=== PATIENT | female | born 1940 | race African-American/Black ===

== ENCOUNTER 2018-10-11 20:22 | Inpatient (IN) | payer OTHER ==
[~2018-10-11] VITALS: Ht 167.6 cm; Wt 62.6 kg
[2018-10-11 22:11] LABS: BASOPHILS % 0.7 % (0.0-2.0); EOSINOPHILS % 0.2 % (0.0-5.0); HEMATOCRIT. 27.1 % (36.0-48.0); HEMOGLOBIN. 8.8 g/dL (12.0-16.0); LYMPHOCYTES % 8.9 % (20.0-50.0); MEAN CORPUSCULAR HEMOGLOBIN 27.5 pg (28.0-32.0); MEAN CORPUSCULAR VOLUME 84.4 fL (81.0-99.0); MEAN PLATELET VOLUME 8.5 fl (7.4-10.4); MONOCYTES % 9.2 % (2.0-8.0); PLATELET 331 x1000/uL (130-400); RED BLOOD CELL COUNT 3.21 mill/uL (4.2-5.4); RED CELL DISTRIBUTION WIDTH 15.4 % (11.6-14.6)
[2018-10-11 22:13] LABS: CHLORIDE 107 mEq/L (98-107)
[2018-10-11] MEDS ORDERED: NITROGLYCERIN 0.4MG TABLET SL SL PRN (22:45)
[2018-10-11] MEDS ORDERED: FUROSEMIDE 40MG/4ML VIAL IV ONE (22:45)
[2018-10-11] MEDS ORDERED: ASPIRIN 81MG TABLET PO ONE (22:45)
[2018-10-12] MEDS ORDERED: POTASSIUM CHLORIDE 20MEQ TABLET SR PO ONE (00:30)
[2018-10-12] MEDS ORDERED: CLONIDINE 0.1MG TABLET PO PRN (07:30)
[2018-10-12] MEDS ORDERED: ONDANSETRON HCL 4MG/2ML INJ IV PRN (07:30)
[2018-10-12] MEDS ORDERED: ACETAMINOPHEN 325MG TABLET PO PRN (07:30)
[2018-10-12 08:00] VITALS: BP 170/64
[2018-10-12] MEDS ORDERED: IPRATROPIUM/ALBUTEROL 0.5-3(2.5)MG/3ML NEB HHN PRN (09:00)
[2018-10-12] MEDS ORDERED: AMLODIPINE 5MG TABLET PO SCH (09:00)
[2018-10-12] MEDS ORDERED: CARV3.1242 MT (10:09)
[2018-10-12] MEDS ORDERED: PIOG15TA6 MT (10:09)
[2018-10-12] MEDS ORDERED: CHOL20004 MT (10:09)
[2018-10-12] MEDS ORDERED: FURO-152 MT (10:09)
[2018-10-12] MEDS: AZITHROMYCIN 500 MG TABLET PO SCH (10:49)
[2018-10-12] MEDS: AMLODIPINE 5MG TABLET PO SCH ×2 (10:50→20:39)
[2018-10-12] MEDS: GUAIFENESIN-DM 200MG-20MG/10ML UDC PO PRN ×2 (10:55→16:07)
[2018-10-12 12:00] VITALS: BP 157/64
[2018-10-12] MEDS ORDERED: DEXTROSE 50% WATER 50ML SYRINGE IV PRN (12:15)
[2018-10-12] MEDS: CEFTRIAXONE 1 G PREMIX 50 ML IV SCH (12:58)
[2018-10-12] MEDS: FUROSEMIDE 20MG TABLET PO SCH (12:58)
[2018-10-12] MEDS: INSULIN LISPRO 100 UNITS/ML SUBCUT SCH ×3 (12:59→21:12)
[2018-10-12] MEDS: BLOOD SUGAR DIAGNOSTIC STRIP TEST SCH ×3 (12:59→21:12)
[2018-10-12 15:53] VITALS: BP 170/64
[2018-10-12 16:00] VITALS: BP 120/63
[2018-10-12 20:00] VITALS: BP 144/69
[2018-10-13] VITALS (7 sets, daily range): BP systolic 115–178; BP diastolic 57–71
[2018-10-13] MEDS: GUAIFENESIN-DM 200MG-20MG/10ML UDC PO PRN ×3 (02:43→14:45)
[2018-10-13] MEDS: INSULIN LISPRO 100 UNITS/ML SUBCUT SCH ×2 (08:31→13:16)
[2018-10-13 08:35] LABS: BASOPHILS % 0.7 % (0.0-2.0); EOSINOPHILS % 0.7 % (0.0-5.0); HEMATOCRIT. 29.4 % (36.0-48.0); HEMOGLOBIN. 9.6 g/dL (12.0-16.0); LYMPHOCYTES % 14.1 % (20.0-50.0); MEAN CORPUSCULAR HEMOGLOBIN 27.6 pg (28.0-32.0); MEAN CORPUSCULAR VOLUME 84.5 fL (81.0-99.0); MEAN PLATELET VOLUME 9.4 fl (7.4-10.4); MONOCYTES % 11.2 % (2.0-8.0); NEUTROPHILS % 73.3 % (40.0-76.0); PLATELET 372 x1000/uL (130-400); RED BLOOD CELL COUNT 3.48 mill/uL (4.2-5.4); RED CELL DISTRIBUTION WIDTH 15.1 % (11.6-14.6)
[2018-10-13] MEDS: CEFTRIAXONE 1 G PREMIX 50 ML IV SCH (10:43)
[2018-10-13] MEDS: FUROSEMIDE 20MG TABLET PO SCH (10:43)
[2018-10-13] MEDS: AZITHROMYCIN 500 MG TABLET PO SCH (10:44)
[2018-10-13] MEDS: AMLODIPINE 5MG TABLET PO SCH (10:44)
[2018-10-13] MEDS ORDERED: DILTIAZEM HCL 90MG TABLET PO SCH (14:00)
[2018-10-13] MEDS ORDERED: AZIT500T5 PO (15:06)
[2018-10-13] MEDS ORDERED: DILT90TA2 PO ×2 (15:06→15:30)
[2018-10-13] MEDS ORDERED: POLYVINYL ALCOHOL OPHTH DROPS 15ML RIGHTEYE SCH (17:00)
== END 2018-10-13 17:34 | disposition home or self-care (01) | DRG 291 ==
LOC: ER 23:33 → 6WST 10-12 00:18 → ENRESERV 10-12 07:04 → EDBEDREQ 10-12 08:40
PROVIDERS: ADMIT Internal Medicine; ATTEND Internal Medicine
DX: I13.0 Hypertensive heart and chronic kidney disease with heart failure and stage 1 through stage 4 chronic kidney disease, or unspecified chronic kidney disease (principal); E43 Unspecified severe protein-calorie malnutrition; J18.1 Lobar pneumonia, unspecified organism; I50.43 Acute on chronic combined systolic (congestive) and diastolic (congestive) heart failure; N18.4 Chronic kidney disease, stage 4 (severe); D64.9 Anemia, unspecified; R74.8 Abnormal levels of other serum enzymes; E11.22 Type 2 diabetes mellitus with diabetic chronic kidney disease; E87.6 Hypokalemia; Z68.22 Body mass index [BMI] 22.0-22.9, adult; Z91.018 Allergy to other foods; Z79.899 Other long term (current) drug therapy
CPT/HCPCS: 36415; 71045; 80048; 82962; 83880; 84484; 93005; 93306; 93970; 96374; 99291; C1893; J0696; J1815; J1940

== ENCOUNTER 2021-07-29 18:38 | Inpatient (IN) | payer MEDICARE, OTHER ==
[~2021-07-29] VITALS: Ht 161.5 cm; Wt 57.6 kg
[~2021-07-29 18:38] MED LIST: AZIT500T8 PO; CARV3.1242 MT; CHOL20004 MT; DILT90TA2 PO; FURO-152 MT; PIOG15TA6 MT
[2021-07-29] MEDS ORDERED: LIDOCAINE HCL 1% 20ML VIAL (Pyxis) INJ INFIL STA (19:25)
[2021-07-29 19:41] LABS: HEMATOCRIT. 36.8 % (36.0-48.0); HEMOGLOBIN. 12.3 g/dL (12.0-16.0); MEAN CORPUSCULAR HEMOGLOBIN 29.3 pg (28.0-32.0); MEAN CORPUSCULAR VOLUME 87.7 fL (81.0-99.0); MEAN PLATELET VOLUME 8.4 fl (7.4-10.4); PLATELET 377 x1000/uL (130-400); RED CELL DISTRIBUTION WIDTH 16.4 % (11.6-14.6)
[2021-07-29 19:48] LABS: PROTHROMBIN TIME 11.2 sec (9.6-11.0)
[2021-07-29 19:49] LABS: CHLORIDE 97 mEq/L (98-107)
[2021-07-29 19:58] LABS: CREATINE KINASE 161 IU/L (26-192)
[2021-07-29 20:00] LABS: PLATELET ESTIMATE NORMAL
[2021-07-29] MEDS ORDERED: PIPERACILLIN/TAZOBACTAM 3.375GM/50ML PREMIX IV ONE (20:30)
[2021-07-29] MEDS ORDERED: VANCOMYCIN 750 MG PREMIX 150 ML IV NR (22:00)
[2021-07-29] MEDS ORDERED: VANCOMYCIN 1 G PREMIX 200 ML IV SCH (22:00)
[2021-07-29] MEDS ORDERED: ACETAMINOPHEN 325MG TABLET PO PRN (22:45)
[2021-07-29] MEDS ORDERED: DIPHENHYDRAMINE 50MG/ML VIAL IV PRN (22:45)
[2021-07-29] MEDS ORDERED: DOCUSATE SODIUM 100MG CAPSULE PO PRN (22:45)
[2021-07-29] MEDS ORDERED: LORAZEPAM 2MG/ML CPJ IV PRN (22:45)
[2021-07-29] MEDS ORDERED: GUAIFENESIN 200MG/10ML SUGAR FREE UDC PO PRN (22:45)
[2021-07-29] MEDS ORDERED: IPRATROPIUM/ALBUTEROL 0.5-3(2.5)MG/3ML NEB HHN PRN (22:45)
[2021-07-29] MEDS ORDERED: ONDANSETRON HCL 4MG/2ML INJ IV PRN (22:45)
[2021-07-29] MEDS ORDERED: DEXTROSE 50% WATER 50ML SYRINGE IV PRN (22:45)
[2021-07-29] MEDS ORDERED: MAGNESIUM/ALUMINUM HYDROXIDE/SIMETHICONE 30ML UDC PO PRN (22:45)
[2021-07-29] MEDS ORDERED: HYDRALAZINE 20MG/ML VIAL IV PRN (22:45)
[2021-07-29] MEDS ORDERED: CLONIDINE 0.1MG TABLET PO PRN (22:45)
[2021-07-29] MEDS ORDERED: NALOXONE HCL 0.4MG/ML VIAL IV PRN (23:00)
[2021-07-30] VITALS (19 sets, daily range): BP systolic 114–189; BP diastolic 47–101
[2021-07-30] MEDS: MORPHINE SULFATE 2 MG/ML CPJ (NOT FOR IM USE) IV PRN (02:43)
[2021-07-30] MEDS: SODIUM CHLORIDE 0.9% INJ 3ML FLUSH IVF SCH ×3 (05:44→21:44)
[2021-07-30 06:12] LABS: HEMATOCRIT. 36.3 % (36.0-48.0); HEMOGLOBIN. 12.2 g/dL (12.0-16.0); MEAN CORPUSCULAR HEMOGLOBIN 29.4 pg (28.0-32.0); MEAN CORPUSCULAR VOLUME 87.6 fL (81.0-99.0); MEAN PLATELET VOLUME 8.4 fl (7.4-10.4); PLATELET 337 x1000/uL (130-400); RED BLOOD CELL COUNT 4.14 mill/uL (4.2-5.4); RED CELL DISTRIBUTION WIDTH 16.4 % (11.6-14.6)
[2021-07-30 06:24] LABS: CHLORIDE 97 mEq/L (98-107)
[2021-07-30] MEDS: BLOOD SUGAR DIAGNOSTIC STRIP TEST SCH ×4 (08:13→21:37)
[2021-07-30] MEDS: INSULIN LISPRO 100 UNITS/ML SUBCUT SCH ×4 (08:22→21:45)
[2021-07-30] MEDS ORDERED: PIPERACILLIN/TAZOBACTAM 3.375 G in DEXTROSE 5% WATER 50 ML IV SCH (09:00)
[2021-07-30] MEDS: ENOXAPARIN 30MG/0.3ML SYR SUBCUT SCH (11:03)
[2021-07-30 13:17] LABS: T4 FREE 0.45 ng/dL (0.76-1.46)
[2021-07-30 13:19] LABS: PLATELET ESTIMATE NORMAL
[2021-07-30] MEDS: LISINOPRIL 40MG TABLET PO SCH (15:21)
[2021-07-30] MEDS: AMLODIPINE 10MG TABLET PO SCH (15:21)
[2021-07-30 16:35] LABS: CREATINE KINASE MB FRACTION 5.2 ng/mL (0.5-3.6)
[2021-07-30] MEDS ORDERED: MANNITOL 12.5G (25%) VIAL 50ML IV ONE (17:30)
[2021-07-30] MEDS: HYDRALAZINE HCL 100MG TABLET PO SCH (21:42)
[2021-07-30] MEDS: PIPERACILLIN/TAZOBACTAM 3.375 G in DEXTROSE 5% WATER 50 ML IV SCH (22:58)
[2021-07-31] VITALS (11 sets, daily range): BP systolic 128–149; BP diastolic 48–70
[2021-07-31] MEDS: HYDROCODONE/ACETAMINOPHEN 5/325MG TABLET PO PRN ×2 (00:58→08:31)
[2021-07-31 02:07] LABS: CREATINE KINASE MB FRACTION 3.5 ng/mL (0.5-3.6)
[2021-07-31 02:24] LABS: HEPATITIS B SURFACE ANTIGEN NEGATIVE
[2021-07-31] MEDS: HYDRALAZINE HCL 100MG TABLET PO SCH ×3 (05:49→22:30)
[2021-07-31] MEDS: SODIUM CHLORIDE 0.9% INJ 3ML FLUSH IVF SCH ×3 (05:55→21:47)
[2021-07-31] MEDS: BLOOD SUGAR DIAGNOSTIC STRIP TEST SCH ×4 (08:14→21:47)
[2021-07-31] MEDS: PIPERACILLIN/TAZOBACTAM 3.375 G in DEXTROSE 5% WATER 50 ML IV SCH ×2 (08:28→21:47)
[2021-07-31] MEDS: LISINOPRIL 40MG TABLET PO SCH (08:29)
[2021-07-31] MEDS: ENOXAPARIN 30MG/0.3ML SYR SUBCUT SCH (08:29)
[2021-07-31] MEDS: AMLODIPINE 10MG TABLET PO SCH (08:29)
[2021-07-31] MEDS: LEVOTHYROXINE SODIUM 25MCG TABLET PO SCH (08:31)
[2021-07-31 08:35] LABS: CREATINE KINASE MB FRACTION 3.2 ng/mL (0.5-3.6)
[2021-07-31] MEDS: INSULIN LISPRO 100 UNITS/ML SUBCUT SCH ×5 (08:37→22:31)
[2021-08-01] VITALS (11 sets, daily range): BP systolic 98–160; BP diastolic 35–74
[2021-08-01] MEDS: HYDROCODONE/ACETAMINOPHEN 5/325MG TABLET PO PRN (00:28)
[2021-08-01] MEDS: HYDRALAZINE HCL 100MG TABLET PO SCH ×3 (05:29→21:50)
[2021-08-01] MEDS: SODIUM CHLORIDE 0.9% INJ 3ML FLUSH IVF SCH ×3 (06:00→21:50)
[2021-08-01 06:05] LABS: HEMATOCRIT. 37.8 % (36.0-48.0); HEMOGLOBIN. 12.7 g/dL (12.0-16.0); MEAN CORPUSCULAR VOLUME 86.6 fL (81.0-99.0); MEAN PLATELET VOLUME 8.3 fl (7.4-10.4); PLATELET 386 x1000/uL (130-400); RED BLOOD CELL COUNT 4.37 mill/uL (4.2-5.4)
[2021-08-01] MEDS: BLOOD SUGAR DIAGNOSTIC STRIP TEST SCH ×4 (07:30→21:00)
[2021-08-01] MEDS: LEVOTHYROXINE SODIUM 25MCG TABLET PO SCH (08:35)
[2021-08-01] MEDS: ENOXAPARIN 30MG/0.3ML SYR SUBCUT SCH (08:35)
[2021-08-01] MEDS: AMLODIPINE 10MG TABLET PO SCH (08:36)
[2021-08-01] MEDS: LISINOPRIL 40MG TABLET PO SCH (08:37)
[2021-08-01] MEDS: PIPERACILLIN/TAZOBACTAM 3.375 G in DEXTROSE 5% WATER 50 ML IV SCH ×2 (08:40→21:51)
[2021-08-01] MEDS: INSULIN LISPRO 100 UNITS/ML SUBCUT SCH ×4 (08:48→22:16)
[2021-08-01 13:00] LABS: ATYPICAL LYMPHOCYTES 1; PLATELET ESTIMATE NORMAL
[2021-08-01] MEDS ORDERED: ALBUMIN HUMAN 12.5GM/50ML (25%) IV PRN (14:45)
[2021-08-01] MEDS ORDERED: ALBUMIN HUMAN 12.5GM/50ML (25%) IV NR (16:30)
[2021-08-01] MEDS: COLCHICINE 0.6MG TABLET PO SCH (21:49)
[2021-08-01] MEDS: ALLOPURINOL 300 MG TABLET PO SCH (21:49)
[2021-08-01] MEDS: PREDNISONE 10MG TABLET PO SCH (21:50)
[2021-08-01] MEDS: MORPHINE SULFATE 2 MG/ML CPJ (NOT FOR IM USE) IV PRN (23:33)
[2021-08-02] VITALS (10 sets, daily range): BP systolic 133–169; BP diastolic 52–80
[2021-08-02] MEDS: SODIUM CHLORIDE 0.9% INJ 3ML FLUSH IVF SCH ×2 (05:13→14:38)
[2021-08-02] MEDS: LEVOTHYROXINE SODIUM 25MCG TABLET PO SCH (05:19)
[2021-08-02] MEDS: HYDRALAZINE HCL 100MG TABLET PO SCH ×2 (05:20→14:38)
[2021-08-02 06:13] LABS: HEMATOCRIT. 32.2 % (36.0-48.0); HEMOGLOBIN. 10.8 g/dL (12.0-16.0); MEAN CORPUSCULAR HEMOGLOBIN 29.1 pg (28.0-32.0); MEAN CORPUSCULAR VOLUME 86.8 fL (81.0-99.0); MEAN PLATELET VOLUME 8.4 fl (7.4-10.4); PLATELET 327 x1000/uL (130-400); RED BLOOD CELL COUNT 3.71 mill/uL (4.2-5.4); RED CELL DISTRIBUTION WIDTH 16.3 % (11.6-14.6)
[2021-08-02] MEDS: BLOOD SUGAR DIAGNOSTIC STRIP TEST SCH ×2 (07:45→12:15)
[2021-08-02] MEDS: INSULIN LISPRO 100 UNITS/ML SUBCUT SCH (08:18)
[2021-08-02] MEDS: ENOXAPARIN 30MG/0.3ML SYR SUBCUT SCH (08:18)
[2021-08-02] MEDS: ALLOPURINOL 300 MG TABLET PO SCH (08:19)
[2021-08-02] MEDS: PREDNISONE 10MG TABLET PO SCH (08:19)
[2021-08-02] MEDS: LISINOPRIL 40MG TABLET PO SCH (08:19)
[2021-08-02] MEDS: COLCHICINE 0.6MG TABLET PO SCH (08:19)
[2021-08-02] MEDS: PIPERACILLIN/TAZOBACTAM 3.375 G in DEXTROSE 5% WATER 50 ML IV SCH (08:19)
[2021-08-02] MEDS: AMLODIPINE 10MG TABLET PO SCH (08:19)
[2021-08-02] MEDS ORDERED: INSULIN LISPRO 100 UNITS/ML SUBCUT NR (12:15)
[2021-08-02] MEDS ORDERED: INSULIN LISPRO 100 UNITS/ML SUBCUT SCH (13:00)
[2021-08-02 13:20] LABS: PLATELET ESTIMATE NORMAL
[2021-08-02] MEDS ORDERED: METHYLPREDNISOLONE ACETATE 40MG/ML VIAL IM NR (14:15)
[2021-08-02] MEDS ORDERED: LIDOCAINE HCL 1% 20ML VIAL (Pyxis) INJ INFIL NR (14:15)
== END 2021-08-02 17:15 | disposition home health service (06) | DRG 553 ==
LOC: ER 18:38 → 5EST 22:10 → ENRESERV 23:00
PROVIDERS: ADMIT Internal Medicine; ATTEND Internal Medicine
PROC: 5A1D70Z Performance of Urinary Filtration, Intermittent, Less than 6 Hours Per Day (ICD-10-PCS; 2021-07-30)
PROC: 0S9C3ZZ Drainage of Right Knee Joint, Percutaneous Approach (ICD-10-PCS; 2021-07-30)
PROC: 5A1D70Z Performance of Urinary Filtration, Intermittent, Less than 6 Hours Per Day (ICD-10-PCS; 2021-07-31)
PROC: 5A1D70Z Performance of Urinary Filtration, Intermittent, Less than 6 Hours Per Day (ICD-10-PCS; 2021-08-01)
PROC: 3E0U33Z Introduction of Anti-inflammatory into Joints, Percutaneous Approach (ICD-10-PCS; principal; 2021-08-02)
PROC: 3E0U3BZ Introduction of Anesthetic Agent into Joints, Percutaneous Approach (ICD-10-PCS; 2021-08-02)
PROC: 3E0U33Z Introduction of Anti-inflammatory into Joints, Percutaneous Approach (ICD-10-PCS; 2021-08-02)
PROC: 3E0U3BZ Introduction of Anesthetic Agent into Joints, Percutaneous Approach (ICD-10-PCS; 2021-08-02)
DX: M17.11 Unilateral primary osteoarthritis, right knee (principal); N18.6 End stage renal disease; E43 Unspecified severe protein-calorie malnutrition; E87.1 Hypo-osmolality and hyponatremia; I13.2 Hypertensive heart and chronic kidney disease with heart failure and with stage 5 chronic kidney disease, or end stage renal disease; I50.32 Chronic diastolic (congestive) heart failure; E87.2 Acidosis; E78.5 Hyperlipidemia, unspecified; K80.20 Calculus of gallbladder without cholecystitis without obstruction; M71.21 Synovial cyst of popliteal space [Baker], right knee; E11.22 Type 2 diabetes mellitus with diabetic chronic kidney disease; K57.90 Diverticulosis of intestine, part unspecified, without perforation or abscess without bleeding; K74.60 Unspecified cirrhosis of liver; E03.9 Hypothyroidism, unspecified; M11.262 Other chondrocalcinosis, left knee; I25.10 Atherosclerotic heart disease of native coronary artery without angina pectoris; D64.9 Anemia, unspecified; I27.21 Secondary pulmonary arterial hypertension; I08.1 Rheumatic disorders of both mitral and tricuspid valves; Z68.22 Body mass index [BMI] 22.0-22.9, adult; Z79.899 Other long term (current) drug therapy; Z88.8 Allergy status to other drugs, medicaments and biological substances; Z91.018 Allergy to other foods; Z80.0 Family history of malignant neoplasm of digestive organs; Z99.2 Dependence on renal dialysis; Z79.84 Long term (current) use of oral hypoglycemic drugs
CPT/HCPCS: 36415; 71045; 73562; 74176; 76700; 78227; 80048; 80053; 80061; 82105; 82378; 82550; 82553; 82962; 83036; 83605; 83880; 84075; 84145; 84439; 84443; 84484; 84550; 85025; 85379; 86705; 86709; 86803; 87340; 89060; 93005; 93306; 93970; 97162; 99291; A9537; J0360; J1030; J1200; J1650; J1815; J2060; J2270; J2405; J2543; J3370; J3490; J7060; J7512; P9047